=== PATIENT | female | born 1945 | race Caucasian/White ===

== ENCOUNTER 2020-02-16 13:03 | Emergency (ER) | payer MEDICARE ==
[~2020-02-16] VITALS: Ht 154.9 cm; Wt 65.5 kg
[2020-02-16] MEDS ORDERED: TEGRETOL200 M1 PO (13:24)
[2020-02-16] MEDS ORDERED: LYRICA200 MG PO (13:24)
[2020-02-16] MEDS ORDERED: BLOOD PRESSURE (13:25)
[2020-02-16 14:36] VITALS: BP 147/72
== END 2020-02-16 14:30 | disposition home or self-care (01) ==
LOC: ED 13:03
DX: K59.00 Constipation, unspecified (principal); I10 Essential (primary) hypertension